=== PATIENT | female | born 1965 | race Two or more races ===

== ENCOUNTER 2020-04-05 07:00 | Emergency (ER) | payer BC, OTHER ==
[~2020-04-05] VITALS: Ht 154.9 cm; Wt 61.2 kg
[2020-04-05] MEDS ORDERED: SODIUM CHLORIDE 0.9% 500 ML IVB ONE (08:00)
[2020-04-05] MEDS ORDERED: FUROSEMIDE 20 MG/2 ML VIAL IV ONE (08:00)
[2020-04-05] MEDS ORDERED: LORazepam 2MG/ML-1ML VIAL IV ONE (08:00)
[2020-04-05] MEDS ORDERED: MECLIZINE HCL 25 MG TAB PO ONE (08:00)
[2020-04-05] MEDS ORDERED: ONDANSETRON HCL 4 MG/2 ML VIAL IV ONE (08:00)
[2020-04-05] MEDS ORDERED: LABETALOL HCL 5 MG/ML 4ML SYRINGE IV ONE (08:00)
[2020-04-05] MEDS ORDERED: SODIUM CHLORIDE 0.9% 1,000 ML IV ONE (08:00)
[2020-04-05 08:06] LABS: Basophils # (auto) 0 10 ^3/uL (0-0.2); Basophils % (auto) 0.5 % (0.0-2.0); Eosinophils # (auto) 0 10 ^3/uL (0-0.8); Eosinophils % (auto) 0.5 % (0.0-7.0); Hematocrit 44.2 % (36.0-46.0); Hemoglobin 14.9 g/dL (12.2-16.2); Lymphocytes # (auto) 0.8 10 ^3/uL (0.4-5.4); Lymphocytes % (auto) 9.2 % (10.0-50.0); Mean Corpuscular Hgb Conc. 33.6 g/dL (32.0-36.0); Mean Corpuscular Volume 92.2 fL (80.0-100.0); Monocytes # (auto) 0.3 10 ^3/uL (0-1.3); Monocytes % (auto) 3.1 % (0.0-12.0); Neutrophils # (auto) 7.7 10 ^3/uL (1.6-8.6); Neutrophils % (auto) 86.7 % (37.0-80.0); Platelet Count (auto) 332 10^3/uL (140-450); Red Blood Cells 4.79 10^6/uL (4.0-5.20); White Blood Cell 8.9 10^3/uL (4.4-10.8)
[2020-04-05 08:12] LABS: Albumin 4.5 g/dL (3.4-5.0); Anion Gap 8 (5-15); Blood Urea Nitrogen 22 mg/dL (7-18); Carbon Dioxide 25 mmol/L (21-32); Chloride 105 mmol/L (98-107); Glucose 112 mg/dL (74-106); Potassium 3.5 mmol/L (3.5-5.1); Sodium 138 mmol/L (136-145)
[2020-04-05 08:17] LABS: Alanine Aminotransferase 30 U/L (13-56); Alkaline Phosphatase 73 U/L (45-117); Aspartate Aminotransferase 28 U/L (15-37); BUN/Creatinine Ratio 23.4; Bilirubin, Total 0.3 mg/dL (0.2-1.0); GFR African American 79 mL/min; GFR Non-African American 65 mL/min; Total Protein 8.6 g/dL (6.4-8.2)
[2020-04-05 10:31] LABS: Urine Bacteria NONE SEEN /hpf (None Seen); Urine Blood TRACE /uL (Negative); Urine Specific Gravity 1.007 (1.001-1.035); Urine WBC <1 /hpf (0 - 5)
[2020-04-05 11:00] VITALS: BP 134/78
== END 2020-04-05 12:31 | disposition home or self-care (01) ==
LOC: ER 07:00
DX: R42 Dizziness and giddiness (principal); I10 Essential (primary) hypertension; Z20.828 Contact with and (suspected) exposure to other viral communicable diseases
CPT/HCPCS: 36415; 70450; 71045; 80053; 81001; 83735; 84484; 85025; 87426; 96361; 96374; 96375; 99285; C9803; J1940; J2060; J2405; J3490; J7030; J8597; U0003

== ENCOUNTER → 2020-04-22 | Outpatient (CLI) | payer BC | END | disposition home or self-care (01) | LOC: XY 12:41 | PROVIDERS: ATTEND Internal Medicine | DX: I10 Essential (primary) hypertension (principal); R42 Dizziness and giddiness | CPT/HCPCS: 93886 ==

== ENCOUNTER → 2020-05-01 | Outpatient (CLI) | payer BC | END | disposition home or self-care (01) | LOC: XYW 09:38 | PROVIDERS: ATTEND Internal Medicine | DX: I11.9 Hypertensive heart disease without heart failure (principal) | CPT/HCPCS: 93306 ==

== ENCOUNTER → 2020-12-08 | Outpatient (CLI) | payer BC ==
[2020-12-08 08:04] LABS: Basophils # (auto) 0.1 10 ^3/uL (0-0.2); Basophils % (auto) 1.1 % (0.0-2.0); Eosinophils # (auto) 0.3 10 ^3/uL (0-0.8); Eosinophils % (auto) 5.2 % (0.0-7.0); Hematocrit 39.2 % (36.0-46.0); Hemoglobin 13.5 g/dL (12.2-16.2); Lymphocytes # (auto) 1.6 10 ^3/uL (0.4-5.4); Mean Corpuscular Hemoglobin 31.7 pg (28.0-32.0); Mean Corpuscular Hgb Conc. 34.3 g/dL (32.0-36.0); Mean Corpuscular Volume 92.3 fL (80.0-100.0); Monocytes # (auto) 0.4 10 ^3/uL (0-1.3); Monocytes % (auto) 7.2 % (0.0-12.0); Neutrophils # (auto) 3.5 10 ^3/uL (1.6-8.6); Neutrophils % (auto) 59.5 % (37.0-80.0); Platelet Count (auto) 307 10^3/uL (140-450); Red Blood Cells 4.25 10^6/uL (4.0-5.20); Red Cell Distribution Width 13.9 % (11.8-14.3); White Blood Cell 5.8 10^3/uL (4.4-10.8)
[2020-12-08 08:25] LABS: Potassium 4.1 mmol/L (3.5-5.1)
[2020-12-08 08:38] LABS: Albumin 4.2 g/dL (3.4-5.0); Bilirubin, Total 0.5 mg/dL (0.2-1.0); CRP High Sensitivity 0.2 mg/dL (< 0.3); Calcium 9.4 mg/dL (8.5-10.1); Total Protein 8.2 g/dL (6.4-8.2)
== END | disposition home or self-care (01) ==
LOC: LAB 07:36
PROVIDERS: ATTEND Obstetrics & Gynecology
DX: I11.9 Hypertensive heart disease without heart failure (principal); E78.2 Mixed hyperlipidemia; R42 Dizziness and giddiness; R53.83 Other fatigue; R87.89 Other abnormal findings in specimens from female genital organs
CPT/HCPCS: 36415; 80053; 80061; 82306; 83036; 84403; 84436; 84443; 84481; 85025; 86141; 86376

== ENCOUNTER → 2025-02-07 | Day surgery (SDC) | payer BC, OTHER ==
[2025-02-03 09:02] LABS: Hematocrit 39.5 % (36.0-46.0); Hemoglobin 13.6 g/dL (12.2-16.2); Mean Corpuscular Hemoglobin 31.3 pg (28.0-32.0); Mean Corpuscular Volume 91.0 fL (80.0-100.0); Nucleated Red Blood Cells % 0.0 %
[2025-02-03 09:13] LABS: Urine Protein, UAD Negative (Negative)
[2025-02-03 09:16] LABS: INR 0.98 (0.9-1.15); Partial Thromboplastin Time 25.9 SEC (24.5-34.5); Prothrombin Time 10.4 sec (9.3-11.8)
[2025-02-03 09:31] LABS: Albumin 4.8 g/dL (3.2-4.8); Alkaline Phosphatase 78 U/L (46-116); Anion Gap 9 (5-15); BUN/Creatinine Ratio 15.2 (10.0-20.0); Blood Urea Nitrogen 19 mg/dL (9-23); Calcium 9.4 mg/dL (8.7-10.4); Carbon Dioxide 27 mmol/L (20-31); Chloride 107 mmol/L (98-107); Glucose 90 mg/dL (74-106); Potassium 3.9 mmol/L (3.5-5.1); Sodium 143 mmol/L (136-145); Total Protein 7.4 g/dL (5.7-8.2)
[2025-02-03 09:32] LABS: Alanine Aminotransferase 57 U/L (7-40); Bilirubin, Total 0.4 mg/dL (0.2-1.0)
[~2025-02-07] VITALS: Ht 154.9 cm; Wt 68.0 kg
[~2025-02-07] MED LIST: AML5T PO; CHOL25CH3 PO; COEN400C8 OR; HYDROmorphone HCL 2 MG/ML VL/or syr IV PRN; LIDOCAINE 2% (LOCAL ANESTH.) PF 5ml SDV ONE; MIDAZOLAM HCL 2MG/2ML 2ml VIAL (1mg/ml) ONE; OMEG600C2 PO; ONDANSETRON HCL 4 MG/2 ML VIAL IV PRN; PROPOFOL 10 MG/ML 20 ML IV ONE; ROSU5TAB5 PO; SIMETHICONE 40 MG/0.6 ML ORAL DROP ONE; [UNRECOGNIZED DRUG - CODE] PO
[2025-02-07 08:28] VITALS: RESP 17; TEMP 97.4; O2SAT 99
--- NOTE | 2025-02-07 08:39 | DVHOP2 ---
Operative Report DATE OF OPERATION: 02/07/25 PROCEDURE: Colonoscopy with cold biopsy polypectomy. PREOPERATIVE INDICATION: The patient is a 59 -year-old female undergoing colonoscopy for colon cancer screening POSTOPERATIVE DIAGNOSES: 1. Two less than 5 mm benign-appearing transverse colon polyps were seen and removed via cold biopsy forceps 2. [id number] scattered diverticular disease most prominent in the sigmoid 3. Trace internal hemorrhoids otherwise normal examination up to the cecum and terminal ileum PROCEDURE PERFORMED BY: Carito Grimes M.D. SCOPE: Olympus videocolonoscope. ASA CLASS: 2. PREOPERATIVE MEDICATIONS: Mac Dr. Manoj dove PROCEDURE IN DETAIL: After obtaining an informed consent, the patient was placed on left lateral decubitus position. She was then sedated with the above medications. A rectal examination was performed that was normal. The colonoscope was then passed through the anus into the rectosigmoid and through the descending, transverse, and ascending colon up to the cecum with visualization of the appendiceal orifice, base of the cecum and the ileocecal valve. The colonoscope was then withdrawn. The distal 3-5 cm of the terminal ileum were normal No masses or colitis were seen. Patient had two less than 5 mm benign-appearing transverse colon polyps One was in the proximal transverse colon in the other in the mid transverse colon. These were removed completely via cold biopsy forceps Patient had mild to moderate scattered diverticular disease most prominent in the sigmoid. On retroflexion she had trace internal hemorrhoids The patient tolerated the procedure well without difficulty. WITHDRAWAL TIME: 7 minutes QUALITY OF THE PREP: [place] Bowel Prep score: 9. COMPLICATIONS : None SPECIMENS: Transverse colon polyps DISPOSITION: Stable D/C to home PLAN: 1. Repeat colonoscopy base on biopsy result likely in 4-5 years 2. Resume GI soft diet advance as tolerated 3. Increase fluid and fiber intake 4. Outpatient follow up with me in 4-6 weeks to review results and discuss further management CARITO GRIMES MD Feb 07, 2025 08:39
[2025-02-07 09:00] VITALS: BP 141/93; PULSE 85; RESP 14; O2SAT 97
== END | disposition home or self-care (01) ==
LOC: GI 06:41
PROVIDERS: ATTEND Internal Medicine Gastroenterology
DX: Z12.11 Encounter for screening for malignant neoplasm of colon (principal); K57.30 Diverticulosis of large intestine without perforation or abscess without bleeding; K64.8 Other hemorrhoids; D12.3 Benign neoplasm of transverse colon; I10 Essential (primary) hypertension; E78.00 Pure hypercholesterolemia, unspecified
CPT/HCPCS: 36415; 45380; 80053; 81001; 85025; 85610; 85730; 88305; J2003; J2250; J2704; J7030